=== PATIENT | female | born 1975 | race Caucasian/White ===

== ENCOUNTER 2017-03-06 17:05 | Outpatient (CLI) | payer OTHER | END 2017-03-06 17:06 | disposition home or self-care (01) | DX: R53.83 Other fatigue (principal); K59.00 Constipation, unspecified; E55.9 Vitamin D deficiency, unspecified ==

== ENCOUNTER 2017-04-23 07:46 | Outpatient (CLI) | payer OTHER ==
--- NOTE | 2017-04-23 11:16 | Ultrasound Report ---
COMPLETE ABDOMINAL ULTRASOUND: 04/23/2017 CLINICAL HISTORY: Increasing mid to left-sided abdominal pain with bloating. TECHNIQUE: Real-time scanning was performed with employee representative static images obtained. FINDINGS: Liver appears normal in regard to parenchymal pattern. Length is 16 cm. Portal vein show s normal hepatopetal flow. Gallbladder appears within normal limits. No wall thickening is seen. E xamination is negative for calculi. Common bile duct is normal with a measurement of 3.7 mm. Pancreas appears normal. Right kidney measures 12.3 cm without pyelocaliceal system dilatation or mass. Left kidney measures 12.7 cm without significant pyelocaliceal system distention or mass. Spleen appears normal in parenchymal pattern. Splenic size is normal measuring 11 cm. Abdominal aor ta has a normal diameter. Proximal diameter is 1.5 cm. Mid diameter is 1.3 cm. Distal diameter is 1.4 cm by 1.3 cm. Inferior vena cava is normal. IMPRESSION: NORMAL EXAMINATION. :9 JOB #: [id number] EXT JOB #:[id number]
== END 2017-04-23 07:47 | disposition home or self-care (01) ==
LOC: DI 07:46
PROVIDERS: ATTEND Nurse Practitioner Family
DX: R10.9 Unspecified abdominal pain (principal); R14.0 Abdominal distension (gaseous)
CPT/HCPCS: 76700

== ENCOUNTER 2017-09-19 15:49 | Outpatient (CLI) | payer OTHER ==
[2017-09-19 17:23] LABS: HCG UR QUAL NEGATIVE
== END 2017-09-19 15:50 | disposition home or self-care (01) ==
LOC: LAB 15:49
PROVIDERS: ATTEND Dermatology
DX: Z79.899 Other long term (current) drug therapy (principal); L70.9 Acne, unspecified
CPT/HCPCS: 81025

== ENCOUNTER 2017-10-19 10:52 | Outpatient (CLI) | payer OTHER ==
[2017-10-19] MEDS ORDERED: IOPAMIDOL-300 50 ML VIAL ONE (11:04)
[2017-10-19] MEDS ORDERED: IOPAMIDOL-300 100 ML VIAL ONE (11:04)
--- NOTE | 2017-10-24 12:49 | CT Report ---
CT ABDOMEN AND PELVIS WITH CONTRAST: 10/19/2017 CLINICAL INDICATION: Lower abdominal pain. Axial CT images of the abdomen and pelvis were obtained with 100 mL Isovue 300 intravenously as well as oral contrast. No previous CT is available for comparison. Comparison is made to abdominal ultrasound of 2016. Limited evaluation of the lung bases is unremarkable. ABDOMEN: The liver, spleen, pancreas, kidneys and adrenal glands are unremarkable. The gallbladder is not dilated. No bowel dilatation, free gas, or free fluid is present. No abdominal adenopathy is seen. PELVIS: Bilateral ovarian follicles are incidentally noted. The appendix is not confidently identified, but no abnormal pericecal inflammation or fluid collection is seen to suggest acute appendicitis. No free fluid or pelvic adenopathy is appreciated. Osseous structures are unremarkable. IMPRESSION: Incidental bilateral ovarian follicles. No evident etiology for abdominal pain. TD: 10/19/2017 20:22 MTDD
--- NOTE | 2017-10-25 10:56 | CT Report ---
CT ABDOMEN AND PELVIS WITH CONTRAST: 10/19/2017 CLINICAL INDICATION: Lower abdominal pain. Axial CT images of the abdomen and pelvis were obtained with 100 mL Isovue 300 intravenously as well as oral contrast. No previous CT is available for comparison. Comparison is made to abdominal ultrasound of 04/23/2017. Limited evaluation of the lung bases is unremarkable. ABDOMEN: The liver, spleen, pancreas, kidneys and adrenal glands are unremarkable. The gallbladder is not dilated. No bowel dilatation, free gas, or free fluid is present. No abdominal adenopathy is seen. PELVIS: Bilateral ovarian follicles are incidentally noted. The appendix is not confidently identified, but no abnormal pericecal inflammation or fluid collection is seen to suggest acute appendicitis. No free fluid or pelvic adenopathy is appreciated. Osseous structures are unremarkable. IMPRESSION: Incidental bilateral ovarian follicles. No evident etiology for abdominal pain. EUGENE TD: 10/19/2017 20:22 [facility]
== END 2017-10-19 10:53 | disposition home or self-care (01) ==
LOC: DI 10:52
PROVIDERS: ATTEND Internal Medicine Gastroenterology
DX: R10.30 Lower abdominal pain, unspecified (principal)
CPT/HCPCS: 74177; Q9967

== ENCOUNTER 2017-10-24 16:20 | Outpatient (CLI) | payer OTHER ==
[2017-10-24 16:34] LABS: HCG UR QUAL NEGATIVE
== END 2017-10-24 16:21 | disposition home or self-care (01) ==
LOC: LAB 16:20
PROVIDERS: ATTEND Dermatology
DX: Z79.899 Other long term (current) drug therapy (principal)
CPT/HCPCS: 81025

== ENCOUNTER 2017-12-28 12:26 | Outpatient (CLI) | payer OTHER ==
[2017-12-28 13:04] LABS: BASOPHILS % (AUTO) 0.5 %; EOSINOPHILS % (AUTO) 1.7 %; HGB - HEMOGLOBIN 11.9 g/dL (12.0-16.0); LYMPHOCYTES # (AUTO) 0.6 10^3/uL (1.5-3.5); LYMPHOCYTES % (AUTO) 23.2 %; MEAN CORPUSCULAR HEMOGLOBIN 30.8 pg (27.0-31.0); MEAN CORPUSCULAR HGB CONC 34.2 g/dL (32.0-36.0); MEAN CORPUSCULAR VOLUME 89.9 fL (81.0-99.0); MEAN PLATELET VOLUME 6.5 fL (7.9-10.8); MONOCYTES # (AUTO) 0.4 10^3/uL (0.0-1.0); MONOCYTES % (AUTO) 13.3 %; NEUTROPHILS # (AUTO) 1.7 10^3/uL (1.5-6.6); NEUTROPHILS % (AUTO) 61.3 %; PLT - PLATELET COUNT 193 10^3/uL (130-450); RED BLOOD COUNT 3.88 10^6/uL (4.20-5.40); RED CELL DISTRIBUTION WIDTH 13.1 % (12.0-15.0); WHITE BLOOD COUNT 2.7 x10^3/uL (4.8-10.8)
[2017-12-28 13:23] LABS: ALBUMIN 3.7 g/dL (3.2-5.5); ALKALINE PHOSPHATASE 48 IU/L (42-121); ALT ALANINE AMINOTRANSFERASE 24 IU/L (10-60); AST ASPARTATE AMINOTRANSFERASE 28 IU/L (10-42); BILIRUBIN,DIRECT 0.1 mg/dL (0.1-0.5); BILIRUBIN,TOTAL 0.4 mg/dL (0.2-1.0); CHOL/HDL RATIO 2.4 (<4.4); CHOLESTEROL 228 mg/dL; HDL CHOLESTEROL 97 mg/dL; LDL CHOLESTEROL,CALCULATED 119 mg/dL; LDL/HDL RATIO 1.2 (<4.4); TOTAL PROTEIN 6.9 g/dL (6.7-8.2); VLDL CHOLESTEROL 12 mg/dL
[2017-12-28 13:26] LABS: PLATELET ESTIMATE, MANUAL NORMAL (130-450,000) (NORMAL); PLATELET MORPHOLOGY NORMAL APPEARANCE (NORMAL); RBC MORPHOLOGY (MULTIPLE) NORMAL APPEARANCE (NORMAL)
== END 2017-12-28 12:27 | disposition home or self-care (01) ==
LOC: LAB 12:26
PROVIDERS: ATTEND Dermatology
DX: L71.8 Other rosacea (principal)
CPT/HCPCS: 36415; 80061; 80076; 83721; 85025

== ENCOUNTER 2018-01-16 13:36 | Outpatient (CLI) | payer OTHER ==
[2018-01-16 14:15] LABS: BASOPHILS % (AUTO) 0.4 %; EOSINOPHILS # (AUTO) 0.1 10^3/uL (0.0-0.7); EOSINOPHILS % (AUTO) 1.2 %; HGB - HEMOGLOBIN 11.7 g/dL (12.0-16.0); LYMPHOCYTES # (AUTO) 1.4 10^3/uL (1.5-3.5); LYMPHOCYTES % (AUTO) 24.6 %; MEAN CORPUSCULAR HEMOGLOBIN 30.7 pg (27.0-31.0); MEAN CORPUSCULAR HGB CONC 34.1 g/dL (32.0-36.0); MEAN CORPUSCULAR VOLUME 89.9 fL (81.0-99.0); MEAN PLATELET VOLUME 7.3 fL (7.9-10.8); MONOCYTES # (AUTO) 0.4 10^3/uL (0.0-1.0); MONOCYTES % (AUTO) 6.5 %; NEUTROPHILS # (AUTO) 3.8 10^3/uL (1.5-6.6); NEUTROPHILS % (AUTO) 67.3 %; PLT - PLATELET COUNT 250 10^3/uL (130-450); RED CELL DISTRIBUTION WIDTH 12.5 % (12.0-15.0); WHITE BLOOD COUNT 5.7 x10^3/uL (4.8-10.8)
[2018-01-16 14:30] LABS: ALBUMIN 3.8 g/dL (3.2-5.5); ALKALINE PHOSPHATASE 53 IU/L (42-121); ALT ALANINE AMINOTRANSFERASE 18 IU/L (10-60); AST ASPARTATE AMINOTRANSFERASE 21 IU/L (10-42); BILIRUBIN,DIRECT 0.1 mg/dL (0.1-0.5); BILIRUBIN,TOTAL 0.7 mg/dL (0.2-1.0); CHOL/HDL RATIO 2.6 (<4.4); CHOLESTEROL 247 mg/dL; HDL CHOLESTEROL 94 mg/dL; LDL CHOLESTEROL,CALCULATED 133 mg/dL; LDL/HDL RATIO 1.4 (<4.4); VLDL CHOLESTEROL 20 mg/dL
== END 2018-01-16 13:37 | disposition home or self-care (01) ==
LOC: LAB 13:36
PROVIDERS: ATTEND Dermatology
DX: L71.8 Other rosacea (principal)
CPT/HCPCS: 36415; 80061; 80076; 83721; 85025